=== PATIENT | female | born 1945 | race Caucasian/White ===

== ENCOUNTER 2016-08-02 11:23 | Day surgery (SDC) | payer MEDICARE, OTHER ==
[~2016-08-02] VITALS: Ht 172.7 cm; Wt 88.0 kg
[~2016-08-02 11:23] MED LIST: ASPI81TA3 PO; CALC-460 PO; CHOL10008 PO; CYAN100085 PO; LOSA100T3 PO; fentaNYL-PF 50 mCg/mL 2 mL Inj IVPUSH PRN
[2016-08-02 12:25] VITALS: BP 152/90; PULSE 68; RESP 16; O2SAT 100
[2016-08-02 14:18] VITALS: BP 146/87; PULSE 64; RESP 14; O2SAT 100
[2016-08-02 14:27] VITALS: BP 139/88; PULSE 68; RESP 12; O2SAT 99
--- NOTE | 2016-08-02 14:46 | ENDO ---
[address] [address] ENDOSCOPY PROCEDURE PATIENT: JEAN-PIERRE MOORE : 1945 MR#: [id number] ADMIT: 08/02/2016 JOB ID: [id number] DATE: 08/02/2016 PRE-PROCEDURE DIAGNOSIS: Colon cancer screening. POST-PROCEDURE DIAGNOSIS: Colon cancer screening. PROCEDURE PERFORMED: Colonoscopy. SURGEON: Ann Sherman MD INSTRUMENT: [facility] H 180 AL. PREPARATION: Good. MEDICATIONS: 1. Versed 6 mg. 2. Fentanyl 150 mcg. HISTORY OF PRESENT ILLNESS: This is a 70-year-old woman who presented for a screening colonoscopy. Previous colonoscopy was performed more than 10 years prior and was normal. DESCRIPTION OF PROCEDURE: The patient was brought to the procedure suite and placed in the left decubitus position. Moderate anesthesia was induced. A digital rectal examination was performed and was normal. The colonoscope was advanced to the cecum and into the terminal ileum. The terminal ileum, ileocecal valve, appendiceal orifice, and coalescence of the tenia were all identified. The TI was normal. The colonoscope was then carefully withdrawn over the course of 24 minutes. There were no masses, polyps or strictures. There were scattered diverticula in the sigmoid colon. Retroflexed examination of the rectum was normal. The colonoscope was withdrawn. The patient tolerated the procedure well. FINDINGS: 1. Scattered diverticula in the sigmoid colon. 2. Otherwise normal colonoscopy. ESTIMATED BLOOD LOSS: None. SPECIMENS: None. COMPLICATIONS: None.
== END 2016-08-02 23:59 | disposition home or self-care (01) ==
LOC: END 11:23
PROVIDERS: ATTEND Surgery
PROC: 0DJD8ZZ Inspection of Lower Intestinal Tract, Via Natural or Artificial Opening Endoscopic (ICD-10-PCS; principal; 2016-08-02 13:00)
DX: Z12.11 Encounter for screening for malignant neoplasm of colon (principal); K57.30 Diverticulosis of large intestine without perforation or abscess without bleeding; I10 Essential (primary) hypertension
CPT/HCPCS: 99153; G0121; G0500; J2250; J3010; J7030